=== PATIENT | female | born 1995 | race Caucasian/White ===

== ENCOUNTER 2019-03-05 04:50 | Emergency (ER) | payer BC, SELFPAY ==
[2019-03-05 04:52] VITALS: BP 142/97; PULSE 133; RESP 16; TEMP 36.8; O2SAT 100; BMI 26.5
--- NOTE | 2019-03-05 05:18 | CT_ITS ---
STUDY: CT ABDOMEN AND PELVIS WITHOUT CONTRAST REASON FOR EXAM: Female, 24 years old. RT SIDED ABDOMEN PAIN AND NAUSEA SINCE 10PM LAST NIGHT RADIATION DOSAGE (If Supplied By Facility): CTDIvol = ( 7.17 ) mGy, DLP = ( 340.46 ) mGycm TECHNIQUE: Transaxial images were obtained from the dome of the diaphragm to the symphysis pubis without oral contrast, and without intravenous contrast. Sagittal and coronal images were reconstructed. Individualized dose optimization techniques were used for this CT. COMPARISON: None. FINDINGS: The visualized lung bases are unremarkable. The visualized portions of the heart are within normal limits. Normal liver. Normal gallbladder and extrahepatic biliary system. Normal spleen. Normal pancreas. Normal bilateral adrenal glands. Normal right kidney. Normal left kidney. Normal visualized stomach. Normal small intestine. Normal colon. The appendix is visualized and appears normal. Normal abdominal aorta. Normal inferior vena cava. Normal retroperitoneum. Normal urinary bladder. Normal abdominal wall. Normal osseous structures. CT/Abdomen/Pelvis without Cont IMPRESSION: Normal unenhanced CT of the abdomen and pelvis. Electronically Signed: Ender Park, at 6:40 EDT Tel , Service support ,
--- NOTE | 2019-03-05 05:19 | ED.DCSUM_ITS ---
History of Present Illness Chief Complaint: Abd Pain Narrative: Patient is a 24-year-old female who presents with abdominal pain. This began about 10 PM last night. She describes it as dull. It has worsened and become severe this morning. She currently rates it as a 7 out of 10. It is located in the right upper abdomen. She also complains of right scapular pain. No history of prior similar symptoms. No fevers. She reports nausea without vomiting. No diarrhea. No vaginal bleeding or discharge. No dysuria frequency or urgency. She has had no prior abdominal surgeries. Past Medical History - Allergies and Home Meds Allergies/Adverse Reactions: Allergies No Known Allergies Allergy (Verified 03/05/19 04:51) Primary Care Physician: [facility] Doctor,Out of [NON-STAFF] - Past Medical History: - - Migraines Smoking Status: Never smoker Review of Systems All systems negative except as indicated General: Denies: Fever Cardiovascular: Denies: Chest pain Respiratory: Denies: Dyspnea Gastrointestinal: Reports: Abdominal pain, Nausea. Denies: Vomiting, Diarrhea, Constipation Genitourinary: Denies: Dysuria, Frequency Musculoskeletal: Reports: - - Posterior right shoulder pain Skin: Denies: Rash Neurological: Denies: Headache Physical Exam Vital Signs/Narrative: Vital Signs Temp Pulse Resp BP Pulse Ox 03/05/19 04:52 98.2 F 133 H 16 142/97 H 100 Inital Vital Signs reviewed: Yes General: Well nourished, Well developed, - - Appears to be in pain, tearful Head: Normocephalic Eyes: EOMI ENT: Moist mucous membranes Neck: Supple Cardiovascular: - - Heart is regular tachycardia Respiratory: No distress, CTA bilaterally Abdomen: Soft, Tender - Right upper quadrant abdominal tenderness, Patterson's sign, - - No pain at McBurney's point. Negative for: Guarding, Rebound tenderness Skin: Normal color Neurological: Alert Psychological: Tearful Diagnostic/Tx/Re-eval Impressions Abdomen/Pelvis CT 03/05/19 05:18 IMPRESSION: Normal unenhanced CT of the abdomen and pelvis. Electronically Signed: Ender Park, at 6:40 EDT Tel , Service support , 03/05/19 05:18 Abdomen/Pelvis without Cont [CT] Stat 03/05/19 06:46 Gallbladder [US] Stat Laboratory Results 03/05/19 03/05/19 03/05/19 05:05 05:05 05:05 WBC 10.3 RBC 4.44 Hgb 13.0 Hct 39.4 MCV 88.7 MCH 29.3 MCHC 33.0 RDW Std Deviation 38.9 RDW Coeff of Anahi 11.9 Plt Count 298 MPV 10.7 Immature Gran % (Auto) 0.300 Neut % (Auto) 66.9 Lymph % (Auto) 24.9 [place] % (Auto) 6.4 Eos % (Auto) 1.2 Baso % (Auto) 0.3 Absolute Neuts (auto) 6.9 Absolute Lymphs (auto) 2.56 Nucleated RBC % 0 Sodium 142 Potassium 3.9 Chloride 107 Carbon Dioxide 25.0 Anion Gap 10 BUN 11 Creatinine 0.75 Estim Creat Clear Calc 91.48 Est GFR (MDRD) Af Amer 121 Est GFR (MDRD) Non-Af 100 BUN/Creatinine Ratio 14.6 Glucose 102 Calcium 8.9 Total Bilirubin 0.50 AST 21 ALT 21 Alkaline Phosphatase 64 Total Protein 8.1 Albumin 3.6 Globulin 4.5 H Albumin/Globulin Ratio 0.8 L Lipase 125 Urine Test Negative - Medical Decision Making My initial concern is for cholecystitis. As ultrasound is not immediately available CT was ordered. She was treated with IV fluids, morphine, Zofran. Her laboratory studies are normal. A CT of the abdomen and pelvis is normal. P regnancy is negative. Patient feels much better on reevaluation. She is resting comfortably. She was advised to follow-up with her primary care physician. She understands return for new worsening or recurrent symptoms. Patient discharged. ED Disposition - Plan for ED Patient: Disposition: Home or Assisted Living Diagnosis: RUQ abdominal pain Instructions: ABDOMINAL PAIN, Unknown Cause, (Female) Referrals: [facility] Doctor,Out of [NON-STAFF] -
[2019-03-05 05:27] LABS: Absolute Lymphocyte Count 2.56 X10^3/uL (0.83-4.51); Absolute Neutrophil Count 6.9 X10^3/uL (2.0-7.7); Basophil# 0.03 X10^3/uL; Basophil% 0.3 % (0-1); Eosinophil# 0.12 X10^3/uL; Eosinophils% 1.2 % (0-5); Hematocrit 39.4 % (37-47); Lymphocyte # 2.56 X10^3/ul (4.0); Lymphocyte % 24.9 % (19-41); Mean Corpuscular Hgb 29.3 pg (27.0-32.0); Mean Corpuscular Volume 88.7 fL (81-99); Mean Platelet Vol. 10.7 fl (6.2-12.0); Monocyte# 0.66 X10^3/uL; Monocyte% 6.4 % (0-10); NRBC Flagged by Analyzer 0 % (0-5); Neutrophil # 6.88 X10^3/uL (2.7-7.7); Neutrophil % 66.9 % (47-70); Platelet Count 298 K/mm3 (150-450); RBC Distribution Width CV 11.9 % (11.6-14.6); RBC Distribution Width SD 38.9 fl (35.1-43.9); Red Blood Count 4.44 M/mm3 (4.2-5.4); White Blood Count 10.3 K/mm3 (4.4-11.0)
[2019-03-05 05:30] LABS: Internal QC Validated? YES +Cl - CLEAR BKGD; Pregnancy, Urine Negative Negative
[2019-03-05] MEDS: 0.9% Normal Saline 1,000 ML 999 ML IV (05:38)
[2019-03-05] MEDS: Morphine 4 MG/ML Syringe IV (05:38)
[2019-03-05] MEDS: Ondansetron 4 MG/2 ML Vial IV (05:38)
[2019-03-05 05:51] LABS: ALB/GLOB Ratio 0.8 RATIO (0.9-2.4); AST(SGOT) 21 U/L (15-37); Alanine Aminotransfer ALT/SGPT 21 U/L (13-56); Albumin, Serum 3.6 g/dL (3.2-5.0); Alkaline Phosphatase 64 U/L (45-117); Anion Gap 10 (5-15); BUN 11 mg/dL (7-18); BUN/Creat Ratio 14.6 RATIO (10-20); Calcium,Total 8.9 mg/dL (8.5-10.1); Chloride 107 mmol/L (98-107); Creatinine, Serum 0.75 mg/dL (0.55-1.02); EST Glomerular Filtration Rate 100 mL/min (>60); Est Glom Filt Rate - Afr Amer 121 mL/min (>60); Estimated Creatinine Clearance 91.48 ml/min; Globulin 4.5 g/dL (2.2-4.2); Glucose 102 mg/dL (74-106); Lipase 125 U/L (73-393); Potassium 3.9 mmol/L (3.5-5.1); Protein, Total 8.1 g/dL (6.4-8.2); Sodium Level 142 mmol/L (136-145)
[2019-03-05 07:35] VITALS: RESP 18
== END 2019-03-05 07:36 | disposition home or self-care (01) ==
PROVIDERS: Emergency Provider Emergency Medicine
DX: R10.11 Right upper quadrant pain (principal); M25.511 Pain in right shoulder; R11.0 Nausea; G43.909 Migraine, unspecified, not intractable, without status migrainosus; R00.0 Tachycardia, unspecified; Z79.899 Other long term (current) drug therapy
CPT/HCPCS: 74176; 80053; 81025; 83690; 85025; 96361; 96374; 96375; 99283; J2405